=== PATIENT | female | born 1995 | race Hispanic/Latino ===

== ENCOUNTER 2018-02-12 15:21 | Observation (INO) | payer BC ==
[~2018-02-12] VITALS: Ht 160 cm; Wt 71.3 kg
[2018-02-12] MEDS ORDERED: MORPHINE SULFATE 2 MG/ML SYR IV STA ×2 (15:25→19:42)
[2018-02-12] MEDS ORDERED: ACETAMINOPHEN 1000 MG/100 ML IV STA (15:28)
[2018-02-12] MEDS ORDERED: SODIUM CHLORIDE 0.9% 1000ML 1,000 ML IV SCH ×3 (15:30→22:00)
[2018-02-12] MEDS ORDERED: ONDANSETRON HCL 4 MG ORAL DISINTEGRATING TAB PO ONE ×2 (15:30→19:45)
[2018-02-12 16:04] LABS: BILIRUBIN,URINE NEGATIVE (NEGATIVE); CLARITY,URINE SL CLOUDY (CLEAR); COLOR,URINE YELLOW (YELLOW); KETONES,URINE TRACE (NEGATIVE); LEUKOCYTE ESTERASE ,URINE TRACE (NEGATIVE); NITRITE,URINE NEGATIVE (NEGATIVE); PROTEIN,URINE DIPSTICK TRACE (NEGATIVE); URINE UROBILINOGEN 0.2 mg/dL (0.2 - 1)
[2018-02-12 16:14] LABS: EPITHELIAL CELLS,URINE FEW /LPF; RBC,URINE 21-50 /HPF (0-5)
[2018-02-12 16:30] LABS: BASOPHILS % 0.3 % (0.0-1.0); EOSINOPHILS % 0.3 % (0.0-6.0); HEMATOCRIT 40.5 % (34.2-44.1); HEMOGLOBIN 13.8 g/dL (12.0-16.0); LYMPHOCYTES # (AUTO) 0.8 (1.0-3.2); LYMPHOCYTES % 13.3 % (18.0-39.1); MEAN CORPUSCULAR HEMOGLOBIN 28.8 pg (28-32); MEAN CORPUSCULAR HGB CONC 34.1 g/dL (31-35); MEAN CORPUSCULAR VOLUME 84.6 fL (81-99); MONOCYTES # (AUTO) 0.4 (0.2-0.8); MONOCYTES % 6.2 % (4.4-11.3); NEUTROPHILS # (AUTO) 4.7 (2.1-6.9); NEUTROPHILS % 79.6 % (38.7-80.0); PLATELET COUNT 233 x10e3/uL (140-360); RED BLOOD COUNT 4.79 x10e6/uL (3.6-5.1); RED CELL DISTRIBUTION WIDTH 12.8 % (11.7-14.4)
[2018-02-12 16:45] LABS: ALANINE AMINOTRANSFERASE 18 IU/L (0-55); ALBUMIN/GLOBULIN RATIO 1.1 (0.8-2.0); ALKALINE PHOSPHATASE 93 IU/L (40-150); AMYLASE 44 U/L (25-125); ANION GAP 11.6 mmol/L (8-16); BLOOD UREA NITROGEN 14 mg/dL (7-26); BUN/CREATININE RATIO 18 (6-25); CALCIUM 9.2 mg/dL (8.4-10.2); CARBON DIOXIDE 24 mmol/L (22-29); CHLORIDE 104 mmol/L (98-107); EST GLOMERULAR FILTRATION RATE > 60 ML/MIN (60-); GLUCOSE 84 mg/dL (74-118); LIPASE 15 U/L (8-78); POTASSIUM 3.6 mmol/L (3.5-5.1); SODIUM 136 mmol/L (136-145)
[2018-02-12 16:47] LABS: HCG,QUANTITATIVE < 1.20 mIU/mL (0-10)
--- NOTE | 2018-02-12 18:05 | Diagnostic Imaging Report ---
PROCEDURE: CT ABDOMEN AND PELVIS WITH CONTRAST TECHNIQUE: The abdomen and pelvis were scanned utilizing a multidetector helical scanner from the diaphragm to the lesser trochanter after the IV administration of 100 cc of Isovue 370 and the oral administration of water. Coronal and sagittal multiplanar reformations were obtained. COMPARISON: None. INDICATIONS: RLQ PAIN, FEVER. NAUSEA/VOMITING .POSSIBLE APPENDICITIS FINDINGS: LOWER THORAX: Normal. HEPATOBILIARY: No focal hepatic lesions. No biliary ductal dilatation. Gallbladder is unremarkable SPLEEN: No splenomegaly. PANCREAS: No focal masses or ductal dilatation. ADRENALS: No adrenal nodules. KIDNEYS/URETERS: No hydronephrosis, stones, or solid mass lesions. PELVIC ORGANS/BLADDER: Bladder and uterus are unremarkable. No adnexal masses. PERITONEUM / RETROPERITONEUM: No free air or fluid. LYMPH NODES: No lymphadenopathy. VESSELS: Unremarkable. GI TRACT: No bowel dilation or evidence of obstruction. No pericolonic inflammatory changes. Appendix is identified and normal in caliber (coronal image 28). BONES AND SOFT TISSUES: No aggressive lytic lesion. Soft tissues are unremarkable. IMPRESSION: 1. No acute abdominopelvic abnormalities. Specifically, no acute abnormal findings in the right lower quadrant to explain the patient's pain. No CT evidence of appendicitis. Carlos Curtis M.D. Dictated by: Carlos Curtis M.D. on 02/12/2018 at 18:07 Electronically approved by: Carlos Curtis M.D. on 02/12/2018 at 18:07
[2018-02-12] MEDS ORDERED: CEFTRIAXONE SOD 1 GM VIAL IM ONE (18:30)
--- NOTE | 2018-02-12 20:03 | Diagnostic Imaging Report ---
Pelvic ultrasound Transvaginal History: Right pelvic pain; LMP 02/11/2018 Comparison: None. Technique: Images were obtained with the endovaginal probe. Findings: The uterus is anteverted. It measures 4.8 x 5.2 x 7.9 cm in length. It is normal in size configuration and echogenicity. The endometrial stripe measures 0.5 cm. It is linear and hyperechoic and normal. There is no fluid within the endometrial canal. There is no gestational sac. Myometrial echo pattern is normal. The right ovary measures 2.3 x 2.9 x 3.2 cm. Multiple follicles are present. A cyst with collapsed borders is suggestive of a corpus luteum. The left ovary measures 1.5 x 2.6 x 3.1 cm. Multiple follicles are present. No mass Blood flow: Blood flow to both ovaries is visualized on color and spectral Doppler interrogation. There is no fluid in the cul-de-sac. IMPRESSION: 1. Normal uterus and endometrial stripe 2. Normal ovaries. 3. No torsion. Signed by: Dr. Lesvia Casper MD on 02/12/2018 8:00 PM
[2018-02-12] MEDS ORDERED: ONDANSETRON HCL 4 MG ORAL DISINTEGRATING TAB PO PRN (22:15)
[2018-02-12] MEDS: SODIUM CHLORIDE 0.9% 1000ML 1,000 ML IV SCH (22:40)
--- OUTSIDE RECORDS SUMMARY | 2018-02-12 22:49 | XMS REPORT ---
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 Allergies, Adverse Reactions, Alerts This patient has no known allergies or adverse reactions. Medications This patient has no known medications. Results Test Description Test Time Test Comments Text Results Atomic Results Result Comments CT ABDOMEN/PELVIS W [place] [address] Patient Name: SARATH DANIELSON MR #: [id number] : 1995 Age/Sex: 23/F Req #: [id number] Adm Physician: Ordered by: BRENDA LESLIE CAMP MANAGER Report #: [id number] Location: ER Room/Bed: Procedure: [id number] CT/CT ABDOMEN/PELVIS W Exam Date: 02/12/18 Exam Time: 1703 REPORT STATUS: Signed PROCEDURE: CT ABDOMEN AND PELVIS WITH CONTRAST TECHNIQUE: The abdomen and pelvis were scanned utilizing a multidetector helical scanner from the diaphragm to the lesser trochanter after the IV administration of 100 cc of Isovue 370 and the oral administration of water. Coronal and sagittal multiplanar reformations were obtained. COMPARISON: None. INDICATIONS: RLQ PAIN, FEVER. NAUSEA/VOMITING .POSSIBLE APPENDICITIS FINDINGS: LOWER THORAX: Normal. HEPATOBILIARY: No focal hepatic lesions. No biliary ductal dilatation. Gallbladder is unremarkable SPLEEN: No splenomegaly. PANCREAS: No focal masses or ductal dilatation. ADRENALS: No adrenal nodules. KIDNEYS/URETERS: No hydronephrosis, stones, or solid mass lesions. PELVIC ORGANS/BLADDER: Bladder and uterus are unremarkable. No adnexal masses. PERITONEUM / RETROPERITONEUM: No free air or fluid. LYMPH NODES : No lymphadenopathy. VESSELS: Unremarkable. GI TRACT: No bowel dilation or evidence of obstruction. No pericolonic inflammatory changes. Appendix is identified and normal in caliber (coronal image 28). BONES AND SOFT TISSUES: No aggressive lytic lesion. Soft tissues are unremarkable. IMPRESSION: 1. No acute abdominopelvic abnormalities. Specifically , no acute abnormal findings in the right lower quadrant to explain the patient's pain. No CT evidence of appendicitis. Alessandro Curtis M.D. Dictated by: Alessandro Curtis M.D. on 02/12/2018 at 18:07 Electronically approved by: Alessandro Curtis M.D. on 02/12/2018 at 18 :07 Dictated By: ALESSANDRO CURTIS MD 06 Transcribed By: BRI on 02/12/181806 COPY TO: BRENDA LESLIE NP TRANSVAGINAL [place] [address] Patient Name: SARATH DANIELSON MR #: [id number] : 1995 Age/Sex: 23/F Req # : [id number] Adm Physician: Ordered by: BRENDA LESLIE NP Report #: [id number] Location: ER Room/Bed: Procedure: [id number] US/US TRANSVAGINAL Exam Date: 02/12/18 Exam Time: 1840 REPORT STATUS: Signed Pelvic ultrasound Transvaginal History: Right pelvic pain; LMP 2018 Comparison: None. Technique : Images were obtained with the endovaginal probe. Findings: The uterus is anteverted. It measures 4.8 x 5.2 x 7.9 cm in length. It is normal in size configuration and echogenicity. The endometrial stripe measures 0.5 cm. It is linear and hyperechoic and normal. There is no fluid within the endometrial canal. There is no gestational sac. Myometrial echo pattern is normal. The right ovary measures 2.3 x 2.9 x 3.2 cm. Multiple follicles are present. A cyst with collapsed borders is suggestive of a corpus luteum. The left ovary measures 1.5 x 2.6 x 3.1 cm. Multiple follicles are present. No mass Blood flow: Blood flow to both ovaries is visualized on color and spectral Doppler interrogation. There is no fluid in the cul -de-sac. IMPRESSION: 1. Normal uterus and endometrial stripe 2. Normal ovaries. 3. No torsion. Signed by: Dr. Jimy Casper MD on 02/12/2018 8:00 PM Dictated By: JIMY CASPER MD 99 Transcribed By: SIXTO on 1999 COPY TO: BRENDA LESLIE NP
[2018-02-12] MEDS: DOXYCYCLINE 100MG/NS 100ML 100 ML IV SCH (23:09)
[2018-02-13] VITALS (9 sets, daily range): BP systolic 89–111; BP diastolic 51–65
[2018-02-13] MEDS: PIPER-TAZ 3.375 GM 50 ML IV SCH ×4 (00:19→18:46)
[2018-02-13] MEDS: MORPHINE SULFATE 2 MG/ML SYR IV PRN ×3 (01:56→16:05)
[2018-02-13] MEDS: ACETAMINOPHEN 325 MG TAB PO PRN ×2 (01:56→18:46)
[2018-02-13] MEDS ORDERED: IOPAMIDOL 370 MG/ML 200 ML INFUS..BTL INJ ONE (04:23)
[2018-02-13] MEDS ORDERED: SODIUM CHLORIDE 0.9% 50ML 50 ML ONE (04:23)
[2018-02-13] MEDS: SODIUM CHLORIDE 0.9% 1000ML 1,000 ML IV SCH ×3 (05:42→22:13)
[2018-02-13 06:34] LABS: BASOPHILS % 0.8 % (0.0-1.0); EOSINOPHILS # (AUTO) 0.1 (0.0-0.4); EOSINOPHILS % 1.7 % (0.0-6.0); HEMATOCRIT 32.7 % (34.2-44.1); HEMOGLOBIN 10.8 g/dL (12.0-16.0); LYMPHOCYTES # (AUTO) 1.2 (1.0-3.2); LYMPHOCYTES % 33.4 % (18.0-39.1); MEAN CORPUSCULAR HEMOGLOBIN 28.6 pg (28-32); MEAN CORPUSCULAR VOLUME 86.5 fL (81-99); MONOCYTES # (AUTO) 0.6 (0.2-0.8); NEUTROPHILS # (AUTO) 1.7 (2.1-6.9); NEUTROPHILS % 47.8 % (38.7-80.0); PLATELET COUNT 169 x10e3/uL (140-360); RED BLOOD COUNT 3.78 x10e6/uL (3.6-5.1); RED CELL DISTRIBUTION WIDTH 12.9 % (11.7-14.4)
[2018-02-13 06:51] LABS: ANION GAP 7.7 mmol/L (8-16); BLOOD UREA NITROGEN 10 mg/dL (7-26); BUN/CREATININE RATIO 14 (6-25); CALCIUM 7.7 mg/dL (8.4-10.2); CARBON DIOXIDE 22 mmol/L (22-29); CHLORIDE 110 mmol/L (98-107); EST GLOMERULAR FILTRATION RATE > 60 ML/MIN (60-); GLUCOSE 77 mg/dL (74-118); POTASSIUM 3.7 mmol/L (3.5-5.1); SODIUM 136 mmol/L (136-145)
[2018-02-13] MEDS: PANTOPRAZOLE 40 MG 10ML VIAL IV SCH (09:07)
--- NOTE | 2018-02-13 09:32 | History and Physical ---
CHIEF COMPLAINTS 1. Abdominal pain in right lower quadrant. 2. Fever. 3. Nausea and vomiting. HPI: This 23-year-old female, with no significant past medical history, was seen by Dr. Ann in our office yesterday for severe lower abdominal pain. The patient was sent to the ER. The patient had no diarrhea. No headache. No dizziness. Had some body ache. No cough. No shortness of breath. No leg pain. No leg swelling. No backache. No burning urination. No vaginal discharge. PAST MEDICAL HISTORY: None. PAST SURGICAL HISTORY: Two sections. ALLERGIES: NO KNOWN DRUG ALLERGIES. HABITS: Denies smoking. Denies alcohol use. FAMILY HISTORY: Noncontributory. MEDICATIONS: None. REVIEW OF SYSTEMS GENERAL: Fatigue and weakness. HEENT: No diplopia. No blurring of vision. CARDIOPULMONARY: No chest pain. No shortness of breath. No cough. ALIMENTARY SYSTEM: As per HPI. GENITOURINARY: Has mild dysuria. No hematuria. MUSCULOSKELETAL: No joint pain. CENTRAL NERVOUS SYSTEM: No focal weakness. PHYSICAL EXAMINATION GENERAL: This is a 23-year-old female who is alert and oriented times 3, in no respiratory distress. VITAL SIGNS: Temperature 100.2, pulse 81, respiratory rate 22, blood pressure 94/51. HEENT: Normal. LUNGS: Clear to auscultation and percussion bilaterally. No added sound. HEART: S1 and S2. Regular rate and rhythm. No S3, S4 or murmur. ABDOMEN: Soft. Right lower quadrant mild guarding and rebound tenderness. Bowel sounds active. EXTREMITIES: No pedal edema. Peripheral pulses +1. NURSE CASE MANAGEMENT: Grossly nonfocal. CT abdomen and ultrasound of pelvis both are normal. No ovarian problem. No appendicitis. Urine shows white count 6-10. Chemistries normal. Calcium is a little bit low. White count is normal. ASSESSMENT: Abdominal pain, nausea and vomiting. Rule out appendicitis. Rule out urinary tract infection. Rule out other etiology. PLAN: IV Zosyn. IV doxycycline. IV fluids. IV Protonix 40 daily. Zofran p.r.n. for nausea and vomiting. Stop morphine. Labs tomorrow. Job#: [id number]
[2018-02-13] MEDS ORDERED: DIOVAN160 MG PO (10:11)
[2018-02-13] MEDS ORDERED: HYDROCHLOROTH12.5 M1 PO (10:12)
[2018-02-13] MEDS ORDERED: LEVAQUIN500 MG PO (10:13)
[2018-02-13] MEDS: DOXYCYCLINE 100MG/NS 100ML 100 ML IV SCH ×2 (10:39→22:25)
--- NOTE | 2018-02-13 13:37 | Consultation ---
DATE OF CONSULTATION: February 13, 2018 INFECTIOUS DISEASE CONSULTATION The patient is a 23-year-old lady admitted to [facility] in [place], [place]. Ms. Triana is a 23-year-old female, , with recent history of a about 7 months ago, which the incision site looks without any acute distress. Patient seen and evaluated with the family in the room and also the nurse as well. She has been having right quadrant abdominal pain, fever, nausea and vomiting for the past few days. She finally came in seeking some medical attention and treatment. The pain is located in the right lower quadrant without any radiation or any movement as far as the location. Radiology studies including CAT scan of the abdomen and pelvis came back without any acute findings and state no acute abdominal or pelvic abnormalities, specifically no acute abnormal findings in the right lower quadrant to explain the patient's pain. No CT evidence of appendicitis. Also, she had a transvaginal ultrasound, which came back with normal uterus and endometrial strip, normal ovaries and no torsion. Temperature has improved. Admitted with 101.3 temperature and currently at 97.2. Pain seems to be easing down a little bit and feels better. Still has no appetite and no acute distress. PAST MEDICAL HISTORY: Except for the , the patient denies any medical history in the past. She denies being on any medication at home at this time. ALLERGIES: NO KNOWN DRUG ALLERGIES. LABORATORY STUDIES: White count 3.56, platelets 169, hemoglobin 10.8. Sodium 136, potassium 3.7, creatinine 0.7. Urine culture and blood culture pending. UA seems abnormal a little bit with trace leukocyte esterase and white count of 6 to 10. Nitrite was negative with 3+ blood. MEDICATIONS: Medication list has been reviewed. As far as infectious disease, the patient is on Zosyn and doxycycline. REVIEW OF SYSTEMS: Remains with right quadrant abdominal pain, which has improved. Still poor appetite with nausea. Fever has improved. PHYSICAL EXAMINATION GENERAL: Alert, oriented, in bed. No acute distress. VITALS: Temperature 97.2, blood pressure 89/52, respirations 16, pulse 67. CV: S1 and S2. CHEST: Equal expansion. Bilaterally clear to auscultation. No acute distress. ABDOMEN: Soft. Nontender. Not distended. Old site seems to be healing well. No acute distress or acute findings. Mild right lower quadrant rebound discomfort. No tenderness. ASSESSMENT AND PLAN: A 23-year-old lady with nausea, vomiting, abdominal pain and fever for the past few days, about 3 to 4 days. She has no rectal bleeding or vaginal bleeding. CT and ultrasound came back without any acute finding. Await cultures. Continue Zosyn and doxycycline at this point. Further management of this patient will be based on daily findings and laboratory and physical examinations. Clinically, seems to be better. Mother agrees that she is better, but she is not back at her 100%. This case was discussed with Dr. Dorsey in detail. I want to thank you for this consult and allowing us to participate in the medical needs of this lady. Dictated by: NICOLE Ghotra Job#: [id number] cc:XAVIER GARCIA MD
--- NOTE | 2018-02-13 21:31 | Consultation ---
DATE OF CONSULTATION: February 13, 2018 HISTORY OF PRESENT ILLNESS: Patient is a 23-year-old female, who says she has abdominal pain for 2 days. She says the pain is in the right lower quadrant. She has had associated nausea and vomiting, also fever, temperature up to 101.3. Says her pain is a little bit better now. She has had no associated diarrhea. She has been evaluated with transvaginal ultrasound, as well as CT of the abdomen and pelvis with no significant findings noticed, specifically the appendix appeared normal. There was no ovarian abnormality seen. Patient has not had similar symptoms in the past. She says she is able to tolerate liquids now, but vomits with solid. PAST MEDICAL HISTORY: Otherwise unremarkable. She has no chronic medical problems. Her only previous surgery was section times 2. ALLERGIES: NONE KNOWN CURRENT MEDICATIONS: None. FAMILY HISTORY: Noncontributory. SOCIAL HISTORY: The patient does not smoke cigarettes or drink alcohol. REVIEW OF SYSTEMS: As stated above otherwise. She has had associated weakness. No urinary symptoms. PHYSICAL EXAMINATION VITALS: Normal. She has been afebrile today. GENERAL: The patient is awake and alert, in no distress. HEENT: Reveals no scleral icterus. NECK: Has no masses. LUNGS: Equal breath sounds are clear bilaterally. CARDIAC: Regular rate and rhythm with no murmur. ABDOMEN: Soft. There is mild right lower quadrant tenderness with no distention, no mass, no signs of peritonitis, no organomegaly. EXTREMITIES: No edema. Pulses are palpable. NEUROLOGIC: Intact. LAB TESTS: White blood cell count is normal 3.56 with normal differential. Hemoglobin 10.8, hematocrit 32.7. Chemistries are normal. Also, liver function tests, test, lipase were all normal. test was negative. ASSESSMENT: A 23-year-old female, symptoms most suggestive of acute gastroenteritis viral syndrome. There are no findings of an acute abdomen. No findings that warrant surgical intervention. At this point, I recommend continued therapy as ordered. Thank you for asking me to see Ms. Triana. Job#: [id number] CQ
[2018-02-14 00:25] VITALS: BP 97/61
[2018-02-14] MEDS: PIPER-TAZ 3.375 GM 50 ML IV SCH ×2 (00:28→06:20)
[2018-02-14 04:30] VITALS: BP 106/61
[2018-02-14] MEDS: SODIUM CHLORIDE 0.9% 1000ML 1,000 ML IV SCH (06:20)
[2018-02-14 07:18] LABS: BASOPHILS % 0.9 % (0.0-1.0); EOSINOPHILS # (AUTO) 0.3 (0.0-0.4); EOSINOPHILS % 9.4 % (0.0-6.0); HEMATOCRIT 35.1 % (34.2-44.1); HEMOGLOBIN 11.8 g/dL (12.0-16.0); LYMPHOCYTES # (AUTO) 1.2 (1.0-3.2); LYMPHOCYTES % 34.9 % (18.0-39.1); MEAN CORPUSCULAR HEMOGLOBIN 28.6 pg (28-32); MEAN CORPUSCULAR HGB CONC 33.6 g/dL (31-35); MONOCYTES # (AUTO) 0.4 (0.2-0.8); MONOCYTES % 10.6 % (4.4-11.3); NEUTROPHILS # (AUTO) 1.6 (2.1-6.9); NEUTROPHILS % 44.2 % (38.7-80.0); PLATELET COUNT 203 x10e3/uL (140-360); RED BLOOD COUNT 4.13 x10e6/uL (3.6-5.1); RED CELL DISTRIBUTION WIDTH 12.5 % (11.7-14.4)
[2018-02-14 07:45] LABS: ANION GAP 11.7 mmol/L (8-16); BLOOD UREA NITROGEN < 5 mg/dL (7-26); CALCIUM 8.4 mg/dL (8.4-10.2); CARBON DIOXIDE 20 mmol/L (22-29); CHLORIDE 111 mmol/L (98-107); CREATININE, SERUM 0.62 mg/dL (0.57-1.11); EST GLOMERULAR FILTRATION RATE > 60 ML/MIN (60-); GLUCOSE 60 mg/dL (74-118); POTASSIUM 3.7 mmol/L (3.5-5.1); SODIUM 139 mmol/L (136-145)
[2018-02-14 07:47] LABS: BUN/CREATININE RATIO 8 (6-25)
[2018-02-14 08:00] VITALS: BP 106/61
[2018-02-14 08:30] VITALS: BP 107/69
[2018-02-14] MEDS: DOXYCYCLINE 100MG/NS 100ML 100 ML IV SCH (09:52)
[2018-02-14] MEDS: PANTOPRAZOLE 40 MG 10ML VIAL IV SCH (09:52)
--- NOTE | 2018-02-15 06:36 | Consultation ---
DATE OF CONSULTATION: REFERRING PHYSICIAN: Josselin Cha MD REASON FOR CONSULTATION: Nausea, vomiting, abdominal pain. HISTORY OF PRESENT ILLNESS: Ms. Triana is a very pleasant, 23-year-old woman who comes in with fever, nausea, vomiting and right lower quadrant pain. She reports she has been probably losing some weight over the past month. Her bowels have been normal. She is 7 months with her 2nd . Per her report, she had a low appetite for about 3 days, fever for 2 days, then nausea and vomiting yesterday. After bouts of nausea and vomiting, she developed pain in the right lower quadrant. She denies any sick contact exposure, recent travel, recent antibiotics or unusual foods. She has no extraintestinal manifestations of inflammatory bowel disease. The pain seems to be worse when she is sitting and better when she is relaxing. It is sharp, as mentioned in the right lower quadrant, without any particular other alleviating or aggravating factors. She has not had any diarrhea, blood in her stool or hematemesis. Stools have been normal. PAST MEDICAL HISTORY: None. PAST SURGICAL HISTORY: times 2. SOCIAL HISTORY: No alcohol, tobacco or illicit substances. FAMILY HISTORY: Positive for lupus in grandmother but no bowel disease. REVIEW OF SYSTEMS: A 12-system review is positive for that mentioned in HPI, otherwise unremarkable. PHYSICAL EXAMINATION GENERAL: Pleasant, alert, oriented, in no acute distress. HEENT: Pupils are equal, round and reactive to light. NECK: Supple. LUNGS: Clear. CARDIAC: S1 and S2. ABDOMEN: Soft. She is tender in the right lower quadrant, but no rebound or guarding. The tenderness has a positive Carnett sign consistent with musculoskeletal etiology. EXTREMITIES: No clubbing, cyanosis or edema. PSYCH Calm, cooperative. NEUROLOGIC: Nonfocal. HEM/ONC: No bruising or adenopathy. Electronic health record is reviewed for laboratory and radiologic studies as well as history. ASSESSMENT 1. Acute onset of fever, nausea and vomiting concerning for acute viral infection or gastritis. 2. Right lower quadrant abdominal pain with positive Carnett sign: The abdominal pain started after the vomiting and is more consistent on physical exam with musculoskeletal etiology. It is possible that she aggravated a superficial abdomen muscle with retching. I have a lower suspicion that there is any underlying inflammatory bowel disease or ileitis. PLAN: At the current time, I would agree with antibiotics as per Dr. Dorsey and Luther. She is already feeling better, and I believe we will continue with diet. If she is tolerating diet, I think she could be released to follow up with me in clinic as needed. Rule out UTI per ID. Thank you very much for asking me to see Ms. Triana. Any questions or concerns please do not hesitate to contact me. Job#: [id number]
== END 2018-02-14 12:46 | disposition left against medical advice (07) ==
LOC: ER 15:21 → IMCU 22:46
PROVIDERS: ADMIT Internal Medicine; ATTEND Internal Medicine
DX: R10.31 Right lower quadrant pain (principal); D72.829 Elevated white blood cell count, unspecified; R11.2 Nausea with vomiting, unspecified; N39.0 Urinary tract infection, site not specified
CPT/HCPCS: 36415 ×3; 74177; 76830; 80048 ×2; 80053; 81001; 82150; 83605; 83690; 84702; 85025 ×3; 87040; 99284; G0378 ×3; J0696; J2270 ×2; J2543 ×3; J7030 ×3; Q9967